=== PATIENT | male | born 1975 | race Caucasian/White ===

== ENCOUNTER 2019-10-09 20:21 | Emergency (ER) | payer MEDICAID, OTHER ==
--- NOTE | 2019-10-09 20:23 | ERPHSYRPT ---
- History of Present Illness Source: patient Exam Limitations: no limitations Physician History: The patient is a 44-year-old male who presents with chief complaint of bilateral eye pain. He reportedly was working on a vehicle and had gas sprayed in his face by accident and estimated 1 hour prior to arrival. He states he had gas in both of his eyes and immediately rinsed his face and eyes out with a watering hose but continued to feel a burning sensation in his eyes and decided to come to the emergency department for further evaluation and management. As soon as he arrived to the ED, he was decontaminated via a shower and irrigated his eyes with copious amounts of water with resolution of his symptoms. He currently denies changes in his visual acuity. He denies the use of corrective lens to include eye glasses, contacts, and has not had corrective eye surgery. He denies eye drainage and discharge. He denies dyspnea, cough, and sore throat and does not think he swallowed or inhaled a significant amount of gasoline. He was not wearing protective goggles at the time of the incident. Pain was burning, constant, non-radiating and has since resolved. Allergies/Adverse Reactions: No Known Drug Allergies Allergy (Unverified 10/09/19 20:39) - Review of Systems Constitutional: No Fever, No Chills Ears, Nose, & Throat: Other (Bilateral eye pain and burning), No Ear Pain, No Ear Discharge, No Nose Pain, No Nose Congestion Respiratory: No Cough, No Dyspnea, No Dyspnea on Exertion (PRESTON) Cardiac: No Chest Pain All Other Systems: Reviewed and Negative - Past Medical History Pertinent Past Medical History: No - Nursing Vital Signs Nursing Vital Signs: Initial Vital Signs Temperature 97.9 F 10/09/19 20:40 Pulse Rate 88 10/09/19 20:40 Respiratory Rate 18 10/09/19 20:40 Blood Pressure 134/94 10/09/19 20:40 O2 Sat by Pulse Oximetry 98 10/09/19 20:40 Pain Scale Pain Intensity 0 - Physical Exam General Appearance: no apparent distress, alert, other (The patient smelled of gasoline) Eye Exam: PERRL/EOMI, eyes nml inspection, No scleral icterus, No pale conjunctivae, No photophobia, No EOM palsy/anisocoria Ears, Nose, Throat Exam: normal ENT inspection, other (Visual acuity: right eye 20/30; left eye 20/20 and both eyes 20/20. No APD, no hypopion, no hyphema , no evidence of corneal abrasion or obvious conjunctivitis or evidence of retained foreign body. No fluoroscein uptake. ), No TM abnormal (R), No TM abnormal (L), No pharyngeal erythema, No tonsillar exudate Neck Exam: normal inspection Respiratory Exam: normal breath sounds, lungs clear, airway intact, No chest tenderness, No respiratory distress, No diminished breath sounds Cardiovascular Exam: regular rate/rhythm, normal heart sounds, normal peripheral pulses, capillary refill <2 sec, No murmur, No friction rub, No gallop Back Exam: normal inspection Extremity Exam: normal inspection Neurologic Exam: alert, 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, cooperative Skin Exam: normal color, warm, dry, No rash SpO2 Interpretation: normal O2 Delivery: Room Air - Course Nursing assessment & vital signs reviewed: Yes Ordered Tests: Active Orders 24 hr Category Date Time Status Visual Acuity STAT Care 10/09/19 20:51 Active Medication Summary Discontinued Medications Generic Name Dose Route Start Last Admin Trade Name Savageq PRN Reason Stop Dose Admin Bacitracin 1 gm 10/09/19 21:10 10/09/19 21:14 Bacitracin Eye Oint OP 10/09/19 21:11 1 gm ONCE ONE Administration Bacitracin Confirm 10/09/19 21:08 Bacitracin Eye Oint Administered 10/09/19 21:09 Dose 3.5 gm .ROUTE .STK-MED ONE Fluorescein Sodium Confirm 10/09/19 20:52 Lggqg-Z-Riluu/Ful-North Administered 10/09/19 20:53 Dose 1 mg OP .STK-MED ONE Tetanus/Diphtheria Toxoids Adsorbed 0.5 ml 10/09/19 21:07 10/09/19 21:15 Tenivac Vial IM 10/09/19 21:08 0.5 ml .ONCE ONE Administration Tetanus/Diphtheria Toxoids Adsorbed Confirm 10/09/19 21:10 Tenivac Vial Administered 10/09/19 21:11 Dose 0.5 ml IM .STK-MED ONE Tetracaine HCl Confirm 10/09/19 20:52 Tetracaine 0.5% Steri-Unit Kay Administered 10/09/19 20:53 Dose 4 ml OP .STK-MED ONE Tetracaine HCl 4 ml 10/09/19 21:06 10/09/19 21:16 Tetracaine 0.5% Steri-Unit Kay OP 10/09/19 21:07 4 ml STAT STA Administration - Progress Progress: improved Counseled pt/family regarding: diagnosis, need for follow-up - Departure Departure Disposition: Home Clinical Impression: Chemical exposure of eye Condition: Stable Critical Care Time: No Referrals: SAVITA MENDEZ, MECHANICAL DOOR REPAIRER [Primary Care Provider] - Instructions: Chemical Eye Injury (DC) Additional Instructions: Please follow-up with [facility] within the next week if needed. The number to the clinic is The clinic is located at [address] [place] [address] [place] [facility] Plan of Treatment: The patient's eye exam was returned. He had complete resolution of symptoms while in the emergency department after copious irrigation with water. His TM was updated and he was supplied with bacitracin ophthalmic ointment to apply to her size the next few days. He is instructed to followup with ophthalmology if needed within the next week if his symptoms were to recur or worsen. He was also instructed to return to the emergency department for further evaluation and management if he was unable to followup with an diesel locomotive crane operator. He agreed with them verbally understood the discharge plan. Prescriptions: Bacitracin Opht 3.5 gm [Bacitracin EYE OINT] 1 film OP TID 3 Days #1 tube
[2019-10-09 20:48] VITALS: O2SAT 98
[2019-10-09] MEDS ORDERED: Fluor-I-Strip/Ful-Flo OP ONE (20:52)
[2019-10-09] MEDS ORDERED: TETRACAINE 0.5% STERI-UNIT SOL OP ONE (20:52)
[2019-10-09] MEDS ORDERED: TETRACAINE 0.5% STERI-UNIT SOL OP STA (21:06)
[2019-10-09] MEDS ORDERED: TENIVAC VIAL IM ONE ×2 (21:07→21:10)
[2019-10-09] MEDS ORDERED: Bacitracin EYE OINT ONE (21:08)
[2019-10-09] MEDS ORDERED: Bacitracin EYE OINT OP ONE (21:10)
[2019-10-09 21:17] VITALS: BP 152/90; PULSE 78
== END 2019-10-09 21:35 | disposition home or self-care (01) ==
LOC: ED 20:21
DX: Z77.098 Contact with and (suspected) exposure to other hazardous, chiefly nonmedicinal, chemicals (principal); H57.13 Ocular pain, bilateral
CPT/HCPCS: 90471; 90714; 99283; A9270-GY

== ENCOUNTER 2020-07-17 15:06 | Emergency (ER) | payer MEDICAID ==
[2020-07-17] MEDS ORDERED: Sodium Chloride 0.9% 1000 ML 1,000 ML IV SCH (15:30)
--- NOTE | 2020-07-17 15:31 | ERPHSYRPT ---
- History of Present Illness Time Seen by Provider: 07/17/20 15:20 Historian: patient Exam Limitations: no limitations Patient Subjective Stated Complaint: Pt states "I have been passing blood in my stool. It all started on thursday. Now it is kind of clotts passing." Triage Nursing Assessment: Pt presented alert and oriented X 3, skin pwd Pt amb ulates with an upright steady gait, able to speak in clear full sentences pt in no apparent respiratory distress. Physician History: Patient is a 45-year-old male presents to our ED for evaluation of maroon- colored blood and clots in stool. Symptoms started 3 days ago. Symptoms are constant. Blood in stool is associated with left lower quadrant pain. Left lower quadrant pain started yesterday. Patient feels his abdomen is somewhat distended. Pain described as an ache that is localized. No radiation. Pain worse with palpation. Pain improves with rest. No fever. No trauma. Patient states otherwise healthy. However patient does not see a primary care physician regularly. at bedside. They voiced no other complaints concerns at this time. Timing/Duration: day(s) Activities at Onset: none (3 days ago) Quality: aching Abdominal Pain Onset Location: LLQ Pain Radiation: no radiation Severity of Pain-Max: moderate Severity of Pain-Current: mild (Patient declined pain medication.) Modifying Factors: Improves With: defecating Associated Symptoms: denies symptoms Previous symptoms: no prior history Allergies/Adverse Reactions: No Known Drug Allergies Allergy (Verified 07/17/20 15:20) Home Medications: No Reportable Medications [No Reported Medications] 07/17/20 [History] Hx Tetanus, Diphtheria Vaccination/Date Given: Yes Hx Influenza Vaccination/Date Given: No Hx Pneumococcal Vaccination/Date Given: No Immunizations Up to Date: Yes Travel Risk - International Travel Have you traveled outside of the country in past 3 weeks: No - Coronavirus Screening Are you exhibiting any of the following symptoms?: No Close contact with a COVID-19 positive Pt in past 14-21 Days: No - Review of Systems Constitutional: No Symptoms, No Fever, No Chills Eyes: No Symptoms Ears, Nose, & Throat: No Symptoms Respiratory: No Symptoms, No Cough, No Dyspnea Cardiac: No Symptoms, No Chest Pain, No Edema, No Syncope Abdominal/Gastrointestinal: No Symptoms, No Abdominal Pain, No Nausea, No Vomiting, No Diarrhea Genitourinary Symptoms: No Symptoms, No Dysuria Musculoskeletal: No Symptoms, No Back Pain, No Neck Pain Skin: No Symptoms, No Rash Neurological: No Symptoms, No Dizziness, No Focal Weakness, No Sensory Changes Psychological: No Symptoms Endocrine: No Symptoms Hematologic/Lymphatic: No Symptoms Immunological/Allergic: No Symptoms All Other Systems: Reviewed and Negative - Past Medical History Pertinent Past Medical History: No Neurological History: No Pertinent History ENT History: No Pertinent History Cardiac History: No Pertinent History Respiratory History: No Pertinent History Endocrine Medical History: No Pertinent History Musculoskeletal History: No Pertinent History GI Medical History: No Pertinent History History: No Pertinent History Psycho-Social History: No Pertinent History Male Reproductive Disorders: No Pertinent History - Past Surgical History Past Surgical History: No Neuro Surgical History: No Pertinent History Cardiac: No Pertinent History Respiratory: No Pertinent History Gastrointestinal: No Pertinent History Genitourinary: No Pertinent History Musculoskeletal: No Pertinent History Male Surgical History: No Pertinent History - Social History Smoking Status: Current every day smoker How long have you smoked: years Exposure to second hand smoke: Yes Drug Use: marijuana Patient Lives Alone: No - Nursing Vital Signs Nursing Vital Signs: Initial Vital Signs Temperature 97.6 F 07/17/20 15:16 Pulse Rate 85 07/17/20 15:16 Respiratory Rate 20 07/17/20 15:16 Blood Pressure 137/65 07/17/20 15:16 O2 Sat by Pulse Oximetry 99 07/17/20 15:16 Pain Scale Pain Intensity 2 - Physical Exam General Appearance: no apparent distress, alert Eye Exam: PERRL/EOMI, eyes nml inspection Ears, Nose, Throat Exam: normal ENT inspection, pharynx normal, moist mucous membranes Neck Exam: normal inspection, non-tender, supple, full range of motion Respiratory Exam: normal breath sounds, lungs clear, No respiratory distress Cardiovascular Exam: regular rate/rhythm, normal heart sounds Gastrointestinal/Abdomen Exam: soft, tenderness (Suprapubic left lower quadrant tenderness.), other (No hemorrhoid observed on exam.), No mass Back Exam: normal inspection, normal range of motion, No CVA tenderness, No vertebral tenderness Extremity Exam: normal inspection, normal range of motion, pelvis stable Neurologic Exam: alert, 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, cooperative, normal mood/affect, nml cerebellar function, sensation nml, No motor deficits Skin Exam: normal color, warm, dry SpO2 Interpretation: normal SpO2: 99 O2 Delivery: Room Air - Course Nursing assessment & vital signs reviewed: Yes - CT Exams Abdomen/Pelvis CT Interpretation: Tele-radiologist Report (T reveals diffuse fecal stasis, small hiatal hernia, and distended urinary bladder. Remaining abdomen pelvis with contrast is negative.) Ordered Tests: Active Orders 24 hr Category Date Time Status IV Insertion STAT Care 07/17/20 15:25 Active ABDOMEN AND PELVIS W CONTRAST [CT] Stat Exams 07/17/20 15:25 Completed CBC W DIFF Stat Lab 07/17/20 15:45 Completed CMP Stat Lab 07/17/20 15:45 Completed LIPASE Stat Lab 07/17/20 15:45 Completed TROPONIN Q3H Lab 07/17/20 15:45 Completed TROPONIN Q3H Lab 07/17/20 18:30 Ordered TROPONIN Q3H Lab 07/17/20 21:30 Ordered TROPONIN Q3H Lab 07/18/20 00:30 Ordered TROPONIN Q3H Lab 07/18/20 03:30 Ordered UA W/RFX UR CULTURE Stat Lab 07/17/20 15:25 Uncollected Medication Summary Generic Name Dose Route Start Last Admin Trade Name Freq PRN Reason Stop Dose Admin Sodium Chloride 1,000 mls @ 100 mls/hr 07/17/20 15:30 07/17/20 15:51 Sodium Chloride 0.9% 1000 Ml IV 08/16/20 15:29 100 mls/hr .Q10H DASHA Administration Lab/Rad Data: Laboratory Result Diagrams 07/17/20 15:45 07/17/20 15:45 Laboratory Results 07/17/20 07/17/20 07/17/20 Range/Units 15:45 15:45 15:45 WBC 11.5 H (4.0-10.5) K/mm3 RBC 5.42 (4.1-5.6) M/mm3 Hgb 15.6 (12.5-18.0) gm/dl Hct 46.4 (42-50) % MCV 85.6 (78-100) fl MCH 28.8 (26-32) pg MCHC 33.6 (32-36) g/dl RDW 14.4 H (11.5-14.0) % Plt Count 324 (150-450) K/mm3 MPV 9.4 (7.5-11.0) fl Gran % 61.1 (36.0-66.0) % Eos # (Auto) 0.48 (0-0.5) Absolute Lymphs (auto) 3.00 (1.0-4.6) Absolute Monos (auto) 0.92 (0.0-1.3) Lymphocytes % 26.1 (24.0-44.0) % Monocytes % 8.0 (0.0-12.0) % Eosinophils % 4.2 (0.00-5.0) % Basophils % 0.6 (0.0-0.4) % Absolute Granulocytes 7.02 H (1.4-6.9) Basophils # 0.07 (0-0.4) Sodium 138 (137-145) mmol/L Potassium 4.1 (3.5-5.1) mmol/L Chloride 104 (98-107) mmol/L Carbon Dioxide 27 (22-30) mmol/L Anion Gap 10.6 (5-15) MEQ/L BUN 17 (9-20) mg/dL Creatinine 0.77 (0.66-1.25) mg/dL Estimated GFR > 60.0 ML/MIN Glucose 106 (74-106) mg/dL Calcium 9.5 (8.4-10.2) mg/dL Total Bilirubin 0.40 (0.2-1.3) mg/dL AST 22 (17-59) U/L ALT 20 (0-50) U/L Alkaline Phosphatase 86 (38-126) U/L Troponin I < 0.012 (0.000-0.034) ng/mL Serum Total Protein 7.8 (6.3-8.2) g/dL Albumin 4.5 (3.5-5.0) g/dL Lipase 44 (23-300) U/L - Departure Departure Disposition: Home Clinical Impression: GI bleed, Distended bladder, Hiatal hernia, Constipation, Urinary retention Condition: Stable Critical Care Time: No Referrals: SAVITA MENDEZ FNP [Primary Care Provider] - KAUSHAL MCDERMOTT [COURTESY STAFF] - JACQUIE NEGRETE MD [NON-STAFF PHY W/O PRIVILEGES] - Additional Instructions: Please follow-up with Dr. Mcdermott of urology to further evaluate your urinary retention. Please follow-up with Dr. Negrete of gastroenterology to further evaluate your rectal bleeding. Discharge/Care Plan AMALIA MAJOR was seen on 07/17/20 in the Emergency Room. The patient was counseled regarding Diagnosis,Lab results, Imaging studies, need for follow up and when to return to the Emergency Room. Prescriptions given: Discharge Note I have spoken with the patient and/or caregivers. I have explained the patient's condition, diagnosis and treatment plan based on the information available to me at this time. I have answered the patient's and/or caregiver's questions and addressed any concerns. The patient and/or caregivers have as good understanding of the patient's diagnosis, condition and treatment plan as can be expected at this point. The vital signs have been stable. The patient's condition is stable and appropriate for discharge from the emergency department. The patient will pursue further outpatient evaluation with the primary care physician or other designated or consulting physician as outlined in the discharge instructions. The patient and/or caregivers are agreeable to this plan of care and follow-up instructions have been explained in detail. The patient a nd/or caregivers have received these instruction. The patient/and or caregivers are aware that any significant change in condition or worsening of symptoms should prompt an immediate return to this or the closest emergency department or call 911.
[2020-07-17 15:53] LABS: Absolute Neutrophil Ct (ANC) 7.02 (1.4-6.9); BASOPHIL % 0.6 % (0.0-0.4); Basophil (Absolute #) 0.07 (0-0.4); Eosinophil % 4.2 % (0.00-5.0); Eosinophil (Absolute #) 0.48 (0-0.5); Hematocrit 46.4 % (42-50); Hemoglobin 15.6 gm/dl (12.5-18.0); Lymphocytes % 26.1 % (24.0-44.0); Mean Cell Volume 85.6 fl (78-100); Mean Corpuscular Hemoglobin 28.8 pg (26-32); Mean Corpuscular Hgb Concent. 33.6 g/dl (32-36); Mean Platelet Volume 9.4 fl (7.5-11.0); Monocyte (Absolute #) 0.92 (0.0-1.3); Neutrophil % 61.1 % (36.0-66.0); Platelet Count 324 K/mm3 (150-450); Red Blood Count 5.42 M/mm3 (4.1-5.6); Red Cell Distribution Width 14.4 % (11.5-14.0); White Blood Count 11.5 K/mm3 (4.0-10.5)
[2020-07-17] MEDS ORDERED: Sodium Chloride 0.9% 1000 ML 1,000 ML ONE (15:54)
[2020-07-17 16:13] LABS: ALBUMIN 4.5 g/dL (3.5-5.0); ALKALINE PHOSPHATASE 86 U/L (38-126); ANION GAP 10.6 MEQ/L (5-15); BLOOD UREA NITROGEN 17 mg/dL (9-20); CHLORIDE 104 mmol/L (98-107); Calcium 9.5 mg/dL (8.4-10.2); Carbon Dioxide 27 mmol/L (22-30); Creatinine 1 0.77 mg/dL (0.66-1.25); EST GLOMERULAR FILTRATION RATE > 60.0 ML/MIN; Glucose 106 mg/dL (74-106); LIPASE 44 U/L (23-300); Potassium 4.1 mmol/L (3.5-5.1); SGOT/AST 22 U/L (17-59); SGPT/ALT 20 U/L (0-50); SODIUM 138 mmol/L (137-145); Total Protein 7.8 g/dL (6.3-8.2)
--- NOTE | 2020-07-17 17:10 | XRAY ---
Indication: Pain and " passing blood." Multiple contiguous axial images obtained through the abdomen and pelvis using 80 cc Isovue-370 contrast only. Comparison: None Lung bases demonstrates mild dependent atelectasis. No infiltrate or effusion. Heart is not enlarged. Small hiatal hernia. Noncontrasted stomach and bowel loops appear nonobstructed. Normal appendix. There is mild diffuse scattered colonic fecal debris throughout. No abnormal bowel wall thickening. Urinary bladder is moderately distended for which outlet obstruction or neurogenic bladder not completely excluded. No free fluid/air. Remaining liver, gallbladder, pancreas, spleen, adrenal glands, kidneys, ureters, bladder, and aorta appear unremarkable. No pathologic retroperitoneal lymphadenopathy. Osseous structures intact. Impression: 1. Mild diffuse fecal stasis, small hiatal hernia, and distended urinary bladder. 2. Remaining CT abdomen/pelvis with contrast exam is negative.
[2020-07-17 18:33] LABS: Appearance CLEAR (CLEAR); Bilirubin NEGATIVE (NEGATIVE); Blood NEGATIVE Ery/ul (0-5); Glucose NEGATIVE (NEGATIVE); Ketones NEGATIVE (NEGATIVE); Leukocyte Esterase NEGATIVE (NEGATIVE); Mucus SLIGHT /HPF (NEGATIVE); Nitrite NEGATIVE (NEGATIVE); Protein,Urine Dip NEGATIVE (Negative); RBC 0-2 /HPF (0-2); Specific Gravity 1.024 (1.005-1.025); Urobilinogen NEGATIVE mg/dL (0-1)
[2020-07-17 19:13] VITALS: BP 128/62; PULSE 98; O2SAT 98
== END 2020-07-17 20:19 | disposition short-term general hospital (02) ==
LOC: ED 15:06
DX: K92.2 Gastrointestinal hemorrhage, unspecified (principal); N32.89 Other specified disorders of bladder; K44.9 Diaphragmatic hernia without obstruction or gangrene; R33.9 Retention of urine, unspecified
CPT/HCPCS: 36000; 36415; 74177; 80053; 81001; 83690; 84484; 85025; 96360; 99285

== ENCOUNTER 2024-04-19 17:29 | Emergency (ER) | payer MEDICAID, OTHER ==
[2024-04-19 17:43] VITALS: BP 129/86; PULSE 69; RESP 15; TEMP 97.6; O2SAT 99
--- NOTE | 2024-04-19 17:53 | ERPHSYRPT ---
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 Symptoms started yesterday. Patient states his first second third and fourth digit are numb. The fourth digit is numb on the radial side. This pattern follows median nerve compression as seen in carpal tunnel. No trauma no fever. No associated chest pain or shortness of breath. No nausea vomiting or diaphoresis. Patient occasionally feels a shooting sensation down from his elbow to his hand as well. However there is no pain at the elbow or tenderness at the cubital fossa. Patient denies a history of the same. He voices no other complaints or concerns at this time. Portions of this note were created with voice recognition technology. There may be grammatical, spelling, punctuation or sound alike errors Timing/Duration: yesterday Severity: moderate Modifying Factors: Improves With: nothing Associated Symptoms: denies symptoms Allergies/Adverse Reactions: No Known Drug Allergies Allergy (Verified 04/19/24 17:44) Home Medications: No Reportable Medications [No Reported Medications] 04/19/24 [History] Hx Tetanus, Diphtheria Vaccination/Date Given: Yes Hx Influenza Vaccination/Date Given: No Hx Pneumococcal Vaccination/Date Given: No - Review of Systems Constitutional: No Symptoms, No Fever, No Chills Eyes: No Symptoms Ears, Nose, & Throat: No Symptoms Respiratory: No Symptoms, No Cough, No Dyspnea Cardiac: No Symptoms, No Chest Pain, No Edema, No Syncope Abdominal/Gastrointestinal: No Symptoms, No Abdominal Pain, No Nausea, No Vomiting, No Diarrhea Genitourinary Symptoms: No Symptoms, No Dysuria Musculoskeletal: No Symptoms, No Back Pain, No Neck Pain Skin: No Symptoms, No Rash Neurological: No Symptoms, No Dizziness, No Focal Weakness, No Sensory Changes Psychological: No Symptoms Endocrine: No Symptoms Hematologic/Lymphatic: No Symptoms Immunological/Allergic: No Symptoms All Other Systems: Reviewed and Negative - Past Medical History Pertinent Past Medical History: No Neurological History: No Pertinent History ENT History: No Pertinent History Cardiac History: No Pertinent History Respiratory History: No Pertinent History Endocrine Medical History: No Pertinent History Musculoskeletal History: No Pertinent History GI Medical History: No Pertinent History History: No Pertinent History Psycho-Social History: No Pertinent History Male Reproductive Disorders: Prostate Problems - Past Surgical History Past Surgical History: No Neuro Surgical History: No Pertinent History Cardiac: No Pertinent History Respiratory: No Pertinent History Gastrointestinal: No Pertinent History Genitourinary: No Pertinent History Musculoskeletal: No Pertinent History Male Surgical History: No Pertinent History - Social History Smoking Status: Current every day smoker How long have you smoked: 25 years Exposure to second hand smoke: Yes Drug Use: marijuana Patient Lives Alone: No - Nursing Vital Signs Nursing Vital Signs: Initial Vital Signs Temperature 97.6 F 04/19/24 17:32 Pulse Rate 69 04/19/24 17:32 Respiratory Rate 15 04/19/24 17:32 Blood Pressure 129/86 04/19/24 17:32 O2 Sat by Pulse Oximetry 99 04/19/24 17:32 Pain Scale Pain Intensity 0 - Physical Exam General Appearance: no apparent distress, alert Eye Exam: PERRL/EOMI, eyes nml inspection Ears, Nose, Throat Exam: normal ENT inspection, pharynx normal, moist mucous membranes Neck Exam: normal inspection, non-tender, supple, full range of motion Respiratory Exam: normal breath sounds, lungs clear, airway intact, No respiratory distress Cardiovascular Exam: regular rate/rhythm, normal heart sounds, normal peripheral pulses Gastrointestinal/Abdomen Exam: soft, normal bowel sounds, No tenderness, No mass Back Exam: normal inspection, normal range of motion, No CVA tenderness, No vertebral tenderness Extremity Exam: normal inspection, normal range of motion, pelvis stable, other (Positive Tinel and Phalen's test. Tinel's causes shooting sensation down into his first through fourth digit. Phalen's tests reproduce patient's numbness at his hands. The same numbness that brought patient in to our ED for an evaluation.) Neurologic Exam: alert, 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, cooperative, normal mood/affect, sensation nml, No motor deficits Skin Exam: normal color, warm, dry, No rash Lymphatic Exam: No adenopathy SpO2 Interpretation: normal SpO2: 99 O2 Delivery: Room Air - Course Nursing assessment & vital signs reviewed: Yes EKG Interpreted by Me: RATE (63), Sinus Rhythm, NORMAL AXIS, NORMAL INTERVALS, NORMAL QRS - Progress Progress: improved Progress Note: 41-year-old male presents to our ED for evaluation of numbness to his left hand along the median nerve distribution. Positive Tinel and Phalen sign. 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 No systemic manifestations. No chest pain or shortness of breath. No nausea vomiting or diaphoresis. Symptoms are mild to moderate in intensity. No specific worsening or improving factors. Patient voices no other complaints or concerns at this time. Portions of this note were created with voice recognition technology. There may be grammatical, spelling, punctuation or sound alike errors 04/19/24 18:01 Management discussed with orthopedic doctor who advises sending patient over to his clinic tomorrow morning for an evaluation. Orthopedic clinic referral completed. Complexity problem addressed is moderate acute complicated. No critical care time. Complex of data reviewed and analyzed is none. No specialized testing ordered. Diagnosis made based on history and physical exam. Risk of complication and or risk of morbidity/mortality patient management is low. Patient received a left wrist cock-up splint. Orthopedic referral completed. Vital stable time spent to discharge patient approximately 10 minutes. Plan of care established for shared decision making. No social determinants of health present impede follow-up. Portions of this note were created with voice recognition technology. There may be grammatical, spelling, punctuation or sound alike errors 04/19/24 18:20 Counseled pt/family regarding: diagnosis, need for follow-up - Departure Departure Disposition: Home Clinical Impression: Carpal tunnel syndrome of left wrist, Numbness Condition: Stable Critical Care Time: No Referrals: KOKO LOPEZ [Primary Care Provider] - Follow up/PCP as directed Additional Instructions: Discharge/Care Plan AMALIA MAJOR was seen on 04/19/24 in the Emergency Room. The patient was counseled regarding Diagnosis,Lab results, Imaging studies, need for follow up and when to return to the Emergency Room. Prescriptions given: Discharge Note I have spoken with the patient and/or caregivers. I have explained the patient's condition, diagnosis and treatment plan based on the information available to me at this time. I have answered the patient's and/or caregiver's questions and addressed any concerns. The patient and/or caregivers have as good understanding of the patient's diagnosis, condition and treatment plan as can be expected at this point. The vital signs have been stable. The patient's condition is stable and appropriate for discharge from the emergency department. The patient will pursue further outpatient evaluation with the primary care physician or other designated or consulting physician as outlined in the discharge instructions. The patient and/or caregivers are agreeable to this plan of care and follow-up instructions have been explained in detail. The patient and/or caregivers have received these instruction. The patient/and or caregivers are aware that any significant change in condition or worsening of symptoms should prompt an immediate return to this or the closest emergency department or call 911.
[2024-04-19] MEDS ORDERED: TORAdol 30 mg Injection ONE (18:28)
[2024-04-19] MEDS: TORAdol 30 mg Injection IM ONE (18:32)
== END 2024-04-19 19:03 | disposition home or self-care (01) ==
LOC: ED 17:29
DX: G56.02 Carpal tunnel syndrome, left upper limb (principal); R20.0 Anesthesia of skin; Z72.0 Tobacco use
CPT/HCPCS: 96372; 99283; J1885; L3908

== ENCOUNTER 2024-04-27 13:22 | Emergency (ER) | payer OTHER ==
[2024-04-27 13:37] VITALS: TEMP 98.1
--- NOTE | 2024-04-27 13:50 | ERPHSYRPT ---
- History of Present Illness Time Seen by Provider: 04/27/24 13:34 Source: patient, family () Exam Limitations: no limitations Patient Subjective Stated Complaint: pt brought to Ed by after possible seizure. Triage Nursing Assessment: Pt brought into ED by . stated, "He was at work, found unconscious by coworker." denies any pain, denies any other injury. Patient was unaware of what happened and states he just feels "drained." Gait was steady, pulses normal, skin w/n/d, vitals wnl, pt bit his tongue while unconscious, pt doesn't appear to be in any distress. Physician History: About 2 hours ago pt was at work and states he started tingling all over and passed out. Pt has a Hx of seizures with last seizure 15 years ago & is on no anticonvulsant medication. Pt denies chest pain, shortness of air, fever; admits to episodes of severe abdominal pain with bright red rectal bleeding(last bleeding episode was 2 months ago). Allergies/Adverse Reactions: No Known Drug Allergies Allergy (Verified 04/27/24 13:40) Home Medications: No Reportable Medications [No Reported Medications] 04/19/24 [History] Hx Tetanus, Diphtheria Vaccination/Date Given: Yes Hx Influenza Vaccination/Date Given: No Hx Pneumococcal Vaccination/Date Given: No Travel Risk - International Travel Have you traveled outside of the country in past 3 weeks: No - Emerging Infectious Disease Are you exhibiting symptoms associated with any current EIDs: No - Review of Systems Ears, Nose, & Throat: No Ear Pain, No Throat Pain Respiratory: No Dyspnea Cardiac: No Chest Pain Abdominal/Gastrointestinal: Abdominal Pain (intermittentr), Hematochezia (2 months ago), No Nausea, No Vomiting, No Diarrhea Genitourinary Symptoms: No Dysuria Musculoskeletal: No Back Pain, No Neck Pain Neurological: No Headache - Past Medical History Pertinent Past Medical History: No Neurological History: No Pertinent History ENT History: No Pertinent History Cardiac History: No Pertinent History Respiratory History: No Pertinent History Endocrine Medical History: No Pertinent History Musculoskeletal History: No Pertinent History GI Medical History: No Pertinent History History: No Pertinent History Psycho-Social History: No Pertinent History Male Reproductive Disorders: Prostate Problems - Past Surgical History Past Surgical History: No Neuro Surgical History: No Pertinent History Cardiac: No Pertinent History Respiratory: No Pertinent History Gastrointestinal: No Pertinent History Genitourinary: No Pertinent History Musculoskeletal: No Pertinent History Male Surgical History: No Pertinent History - Social History Smoking Status: Current every day smoker How long have you smoked: 25 years Exposure to second hand smoke: Yes Drug Use: marijuana Patient Lives Alone: No - Social Determinants of Health Will the patient participate in the screening: Yes Do you worry about a steady place to live?: No Do you have any problems with any of the following?: No known problems In the past 12 months,have you had to go without utilities?: No Transportation Issues: No Has anyone in your support network made you feel unsafe?: No Have you or anyone in your house had to go without enough: No - Nursing Vital Signs Nursing Vital Signs: Initial Vital Signs Temperature 98.1 F 04/27/24 13:26 Pulse Rate 82 04/27/24 13:26 Respiratory Rate 10 L 04/27/24 13:26 O2 Sat by Pulse Oximetry 96 04/27/24 13:26 Pain Scale Pain Intensity 0 - [place] Coma Scale Best Eye Response (Julio): (4) open spontaneously Best Verbal Response ([place]): (5) oriented Best Motor Response (Julio): (6) obeys commands [place] Total: 15 - Physical Exam General Appearance: alert Eye Exam: bilateral eye: PERRL, EOMI Ears, Nose, Throat Exam: TMs normal, pharynx normal, other (3 mm superficial laceration/abrasion to left side of anterior 1/3 of tongue - no bleeding) Neck Exam: normal inspection, non-tender Respiratory: lungs clear Cardiovascular: normal heart sounds Gastrointestinal: normal bowel sounds Back Exam: No vertebral tenderness Extremity Exam: normal range of motion, No pedal edema 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, 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, 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 No new/acute findings on this noncontrast exam.) Ordered Tests: Active Orders 24 hr Category Date Time Status EKG-ER Only STAT Care 04/27/24 13:45 Active IV Insertion STAT Care 04/27/24 13:45 Active ABDOMEN AND PELVIS W/0 CONTRAS [CT] Stat Exams 04/27/24 13:52 Completed CHEST 2 VIEWS (PA AND LAT) Stat Exams 04/27/24 13:46 Completed HEAD WITHOUT CONTRAST [CT] Stat Exams 04/27/24 13:45 Completed AMYLASE Stat Lab 04/27/24 14:04 Completed CBC W DIFF Stat Lab 04/27/24 14:04 Completed CMP Stat Lab 04/27/24 14:04 Completed ETHYL ALCOHOL Stat Lab 04/27/24 14:04 Completed LIPASE Stat Lab 04/27/24 14:04 Completed MAGNESIUM Stat Lab 04/27/24 14:04 Completed POCT GLUCOSE Stat Lab 04/27/24 13:34 Completed TROPONIN Q4H Lab 04/27/24 14:04 Completed TROPONIN Q4H Lab 04/27/24 18:00 Ordered TROPONIN Q4H Lab 04/27/24 22:00 Ordered Urine Triage Profile Stat Lab 04/27/24 13:45 Stop Req Medication Summary Generic Name Dose Route Start Last Admin Trade Name Freq PRN Reason Stop Dose Admin Sodium Chloride 1,000 mls @ 100 mls/hr 04/27/24 13:45 04/27/24 13:55 Sodium Chloride 0.9% 1000 Ml IV 05/27/24 13:44 100 mls/hr .Q10H DASHA Administration Lab/Rad Data: Laboratory Result Diagrams 04/27/24 14:04 04/27/24 14:04 Laboratory Results 04/27/24 04/27/24 04/27/24 Range/Units 14:04 14:04 14:04 WBC 16.4 H (4.23-9.07) x10^3/uL RBC 5.23 (4.63-6.08) x10^6/uL Hgb 14.5 (13.7-17.5) g/dL Hct 42.6 (40.1-51.0) % MCV 81.5 (79.0-92.2) fL MCH 27.7 (25.7-32.2) pg MCHC 34.0 (32.3-36.5) g/dL RDW 14.3 (11.6-14.4) % Plt Count 355 H (163-337) x10^3/uL MPV 9.4 (9.4-12.4) fL Gran % 81.8 H (34.0-67.9) % Immature Gran % (Auto) 0.3 (0.001-0.429) % Nucleat RBC Rel Count 0.0 (0.00-0.2) % Eos # (Auto) 0.13 (0.04-0.54) x10^3/uL Immature Gran # (Auto) 0.05 H (0.001-0.031) x10^3u/L Absolute Lymphs (auto) 1.84 (1.32-3.57) x10^3/uL Absolute Monos (auto) 0.83 H (0.30-0.82) x10^3/uL Absolute Nucleated RBC 0.00 (0.00-0.012) x10^3u/L Lymphocytes % 11.2 L (21.8-53.1) % Monocytes % 5.1 L (5.3-12.2) % Eosinophils % 0.8 (0.8-7.0) % Basophils % 0.8 (0.2-1.2) % Absolute Granulocytes 13.40 H (1.78-5.38) x10^3/uL Basophils # 0.13 H (0.01-0.08) x10^3/uL Sodium 136 (135-145) mmol/L Potassium 3.8 (3.5-5.1) mmol/L Chloride 104 (98-107) mmol/L Carbon Dioxide 23 (22-30) mmol/L Anion Gap 12.6 (5-15) MEQ/L BUN 21 H (9-20) mg/dL Creatinine 0.98 (0.66-1.25) mg/dL Estimated GFR 95.1 ML/MIN Glucose 169 H (74-106) mg/dL POC Glucometer (74 to 106) mg/dL Calcium 8.8 (8.4-10.2) mg/dL Magnesium 2.4 H (1.6-2.3) mg/dL Total Bilirubin 0.90 (0.2-1.3) mg/dL AST 30 (17-59) U/L ALT 22 (0-50) U/L Alkaline Phosphatase 93 (38-126) U/L Troponin I < 0.012 (0.000-0.033) ng/mL Serum Total Protein 6.7 (6.3-8.2) g/dL Albumin 4.0 (3.5-5.0) g/dL Amylase 51 (30-110) U/L Lipase 35 (23-300) U/L Ethyl Alcohol < 10 (0-10) mg/dL 04/27/24 Range/Units 13:34 WBC (4.23-9.07) x10^3/uL RBC (4.63-6.08) x10^6/uL Hgb (13.7-17.5) g/dL Hct (40.1-51.0) % MCV (79.0-92.2) fL MCH (25.7-32.2) pg MCHC (32.3-36.5) g/dL RDW (11.6-14.4) % Plt Count (163-337) x10^3/uL MPV (9.4-12.4) fL Gran % (34.0-67.9) % Immature Gran % (Auto) (0.001-0.429) % Nucleat RBC Rel Count (0.00-0.2) % Eos # (Auto) (0.04-0.54) x10^3/uL Immature Gran # (Auto) (0.001-0.031) x10^3u/L Absolute Lymphs (auto) (1.32-3.57) x10^3/uL Absolute Monos (auto) (0.30-0.82) x10^3/uL Absolute Nucleated RBC (0.00-0.012) x10^3u/L Lymphocytes % (21.8-53.1) % Monocytes % (5.3-12.2) % Eosinophils % (0.8-7.0) % Basophils % (0.2-1.2) % Absolute Granulocytes (1.78-5.38) x10^3/uL Basophils # (0.01-0.08) x10^3/uL Sodium (135-145) mmol/L Potassium (3.5-5.1) mmol/L Chloride (98-107) mmol/L Carbon Dioxide (22-30) mmol/L Anion Gap (5-15) MEQ/L BUN (9-20) mg/dL Creatinine (0.66-1.25) mg/dL Estimated GFR ML/MIN Glucose (74-106) mg/dL POC Glucometer 165 H (74 to 106) mg/dL Calcium (8.4-10.2) mg/dL Magnesium (1.6-2.3) mg/dL Total Bilirubin (0.2-1.3) mg/dL AST (17-59) U/L ALT (0-50) U/L Alkaline Phosphatase (38-126) U/L Troponin I (0.000-0.033) ng/mL Serum Total Protein (6.3-8.2) g/dL Albumin (3.5-5.0) g/dL Amylase (30-110) U/L Lipase (23-300) U/L Ethyl Alcohol (0-10) mg/dL - Progress Progress: improved Progress Note: 04/27/24 16:25 Pt told ER Nurse he cannot give a urine specimen. Counseled pt/family regarding: lab results, diagnosis, need for follow-up, rad results Medical Desision Making - Diagnostic Testing Diagnostic test were ordered, analyzed, and reviewed by me: Yes Radiological Interpretation: Discussed w/ radiologist - Departure Departure Disposition: Home Clinical Impression: Syncope, Hx of abdominal pain, History of rectal bleeding, Possible seizure Condition: Stable Critical Care Time: No Referrals: KOKO LOPEZ [Primary Care Provider] - Follow up/PCP as directed Instructions: Syncope (fainting), Abdominal Pain, Adult ED, Seizures, Adult ED Additional Instructions: Follow up with private doctor today. Do not drive a motor vehicle until cleared by private doctor. Forms: Work/School Release Form
[2024-04-27] MEDS ORDERED: Sodium Chloride 0.9% 1000 ML 1,000 ML ONE (13:53)
[2024-04-27] MEDS: Sodium Chloride 0.9% 1000 ML 1,000 ML IV SCH (13:55)
[2024-04-27 14:05] LABS: BASOPHIL % 0.8 % (0.2-1.2); Basophil (Absolute #) 0.13 x10^3/uL (0.01-0.08); Eosinophil % 0.8 % (0.8-7.0); Eosinophil (Absolute #) 0.13 x10^3/uL (0.04-0.54); Hematocrit 42.6 % (40.1-51.0); Hemoglobin 14.5 g/dL (13.7-17.5); IMMATURE GRAN # 0.05 x10^3u/L (0.001-0.031); IMMATURE GRAN % 0.3 % (0.001-0.429); Lymphocyte (Absolute #) 1.84 x10^3/uL (1.32-3.57); Lymphocytes % 11.2 % (21.8-53.1); Mean Cell Volume 81.5 fL (79.0-92.2); Mean Corpuscular Hemoglobin 27.7 pg (25.7-32.2); Mean Platelet Volume 9.4 fL (9.4-12.4); Monocyte (Absolute #) 0.83 x10^3/uL (0.30-0.82); Monocytes % 5.1 % (5.3-12.2); Neutrophil % 81.8 % (34.0-67.9); Platelet Count 355 x10^3/uL (163-337); Red Blood Count 5.23 x10^6/uL (4.63-6.08); Red Cell Distribution Width 14.3 % (11.6-14.4); White Blood Count 16.4 x10^3/uL (4.23-9.07)
[2024-04-27 14:19] LABS: ALKALINE PHOSPHATASE 93 U/L (38-126); AMYLASE 51 U/L (30-110); ANION GAP 12.6 MEQ/L (5-15); BLOOD UREA NITROGEN 21 mg/dL (9-20); CHLORIDE 104 mmol/L (98-107); Calcium 8.8 mg/dL (8.4-10.2); Carbon Dioxide 23 mmol/L (22-30); Creatinine 1 0.98 mg/dL (0.66-1.25); EST GLOMERULAR FILTRATION RATE 95.1 ML/MIN; ETHYL ALCOHOL < 10 mg/dL (0-10); Glucose 169 mg/dL (74-106); LIPASE 35 U/L (23-300); MAGNESIUM 2.4 mg/dL (1.6-2.3); Potassium 3.8 mmol/L (3.5-5.1); SGOT/AST 30 U/L (17-59); SGPT/ALT 22 U/L (0-50); SODIUM 136 mmol/L (135-145); Total Protein 6.7 g/dL (6.3-8.2)
--- NOTE | 2024-04-27 14:56 | XRAY ---
Indication: Syncope. Comparison: November 10, 2013 PA/lateral chest unchanged again hyperinflated and clear with incidental right upper lung calcified granuloma. Heart not enlarged again with incidental chunky paratracheal calcified nodes. Bony thorax intact again with mild dextroscoliosis. No new/acute findings.
--- NOTE | 2024-04-27 14:58 | XRAY ---
Indication: Syncope. Multiple contiguous axial images obtained through the head without contrast. Comparison: None Normal appearing brain parenchyma, ventricles, and bony calvarium. Visualized paranasal sinuses and mastoid air cells are clear. Impression: Normal CT head without contrast exam.
--- NOTE | 2024-04-27 15:00 | XRAY ---
Indication: Rectal bleeding. Multiple contiguous axial images obtained through the abdomen and pelvis without contrast. Comparison: July 17, 2020 Lung bases again demonstrate minimal dependent atelectasis. No infiltrate or effusion. Heart not enlarged. Stable small hiatal hernia. Noncontrasted stomach and bowel loops nonobstructed again with normal appendix. There remains mild diffuse scattered colonic fecal debris including rectum. No free fluid/air. Remaining liver, gallbladder, pancreas, spleen, adrenal glands, kidneys, ureters, bladder, and aorta are unremarkable for noncontrast exam. Osseous structures intact again with mild levoscoliosis centered at L3. No ventral or inguinal hernias. Impression: Again small hiatal hernia, mild diffuse fecal stasis, and levoscoliosis. No new/acute findings on this noncontrast exam.
[2024-04-27 16:22] VITALS: BP 125/87; PULSE 85; RESP 20
[2024-04-27 16:27] VITALS: O2SAT 96
== END 2024-04-27 16:45 | disposition home or self-care (01) ==
LOC: ED 13:22
DX: R55 Syncope and collapse (principal); Z87.898 Personal history of other specified conditions; Z72.0 Tobacco use
CPT/HCPCS: 36000; 36415; 70450; 71046; 74176; 80053; 82077; 82150; 82947; 83690; 83735; 84484; 85025; 93005; 99284